=== PATIENT | male | born 1980 | race Hispanic/Latino ===

== ENCOUNTER 2017-11-19 14:16 | Inpatient (IN) | payer OTHER ==
--- NOTE | 2017-11-19 14:52 | ED PDOC ---
HPI: Headache Chief Complaint (Provider): Headache History Per: Patient History/Exam Limitations: no limitations Onset/Duration Of Symptoms: Days (three) Current Symptoms Are (Timing): Still Present Severity: Moderate Preceeding Symptoms: Other (hx of viral encephalitis) <Troy Escoto - Last Filed: 11/19/17 21:19> <Jessica Barnes - Last Filed: 11/19/17 21:30> Time Seen by Provider: 11/19/17 14:51 Chief Complaint (Nursing): Headache Supervising Attending Note - Supervising Attending Note The Documented history was done by the: Physician Advertising Sales Consultant The documented physical exam was done by the: Physician Advertising Sales Consultant The documented procedures were done by the: Physician Advertising Sales Consultant - Attestation: I have personally seen and examined this patient.: Yes I have fully participated in the care of the patient.: Yes I have reviewed all pertinent clinical information: Yes <Jessica Barnes - Last Filed: 11/19/17 21:30> Past Medical History Reviewed: Historical Data, Nursing Documentation, Vital Signs Vital Signs: Last Vital Signs Temp 97.0 F L 11/19/17 14:18 Pulse 71 11/19/17 14:18 Resp 16 11/19/17 14:18 BP 121/81 11/19/17 14:18 Pulse Ox 99 11/19/17 14:18 - Medical History Other PMH: viral encephalitis - Family History Family History: States: Unknown Family Hx <Troy Escoto - Last Filed: 11/19/17 21:19> Vital Signs: Last Vital Signs Temp 97.0 F L 11/19/17 14:18 Pulse 71 11/19/17 14:18 Resp 16 11/19/17 14:18 BP 121/81 11/19/17 14:18 Pulse Ox 99 11/19/17 15:02 <Jessica Barnes - Last Filed: 11/19/17 21:30> - Home Medications Home Medications: Ambulatory Orders Medication Instructions Recorded No Known Home Med 11/19/17 - Allergies Allergies/Adverse Reactions: Allergies Allergy/AdvReac Type Severity Reaction Status Date / Time No Known Allergies Allergy Verified 11/19/17 14:18 Review of Systems ROS Statement: Except As Marked, All Systems Reviewed And Found Negative Constitutional: Positive for: Fever, Sweats Eyes: Positive for: Pain Musculoskeletal: Positive for: Back Pain Neurological: Positive for: Headache <Troy Escoto - Last Filed: 11/19/17 21:19> Physical Exam - Reviewed Nursing Documentation Reviewed: Yes Vital Signs Reviewed: Yes - Physical Exam Appears: Positive for: Well, No Acute Distress Head Exam: Positive for: ATRAUMATIC, NORMAL INSPECTION, NORMOCEPHALIC Skin: Positive for: Normal Color, Warm, Dry Eye Exam: Positive for: Normal appearance, EOMI, PERRL Neck: Positive for: Normal, Painless ROM, Decreased ROM, Pain On Movement Of Neck (keuring sign (-) though neck is stiff and tender to palpation) Cardiovascular/Chest: Positive for: Regular Rate, Rhythm. Negative for: Edema, Murmur, Bradycardia, Tachycardia, Ectopy, Friction Rub Respiratory: Positive for: Normal Breath Sounds. Negative for: Crackles, Rales , Rhonchi, Stridor, Wheezing, Respiratory Distress, Plerual Rub Pulses-Carotid (L): 2+ Pulses-Carotid (R): 2+ Pulses-Radial (L): 2+ Pulses-Radial (R): 2+ Gastrointestinal/Abdominal: Positive for: Normal Exam, Soft. Negative for: Tenderness Lymphatic: Positive for: Normal Exam. Negative for: Adenopathy <Troy Escoto - Last Filed: 11/19/17 21:19> - Laboratory Results Result Diagrams: 11/19/17 15:00 11/19/17 15:00 - ECG O2 Sat by Pulse Oximetry: 99 <Troy Escoto - Last Filed: 11/19/17 21:19> - Laboratory Results Result Diagrams: 11/19/17 15:00 11/19/17 15:00 - Progress Condition: Unchanged - Critical Care Total Time (In Min): 30 <Jessica Barnes - Last Filed: 11/19/17 21:30> Medical Decision Making Medical Decision Making: hx of viral encephalapathy and sent by for "nucal tenderness" with headache (-) = clinically insignificant results CBC (-) CMP (-) Blood Culture ESR (+) CT (-) LP Pt received Benadryl 50mg IVP x2 Discussed case with Dr Louie Neurology who recommened admit without providing any guidance regarding abx or treatment\\Disc Discussed case with of infectious disease who indicated acyclovir, ceftriaxone and vanco- admit Duscussed case with Dir Alvarez hospitalist re admitission <Troy Escoto - Last Filed: 11/19/17 21:19> Procedures - Time-Out Type of Procedure: Lumbar Puncture Site of Procedure: Spine Correct Patient: Yes Correct Procedure: Yes Correct Site Marked: Yes X-Ray Marked: Yes Physician Name: Molly PA/Tech: Jevon - Additional Procedures Additional Procedures: lumbar puncture (Lumbar Puncture performed: one percent lidocaine without epinephrine 5ml used to anesticize the skin after marking the top of the iliac crest and centerline. The cathether was inserted just short of the hub and CS fluid was visualized; four tubes collected; the patient tolerated the procedure well and was resting comfortalby) <Troy Escoto - Last Filed: 11/19/17 21:19> Disposition <Troy Escoto - Last Filed: 11/19/17 21:19> <Jessica Barnes - Last Filed: 11/19/17 21:30> - Disposition Forms: [facility] (Tajik)
[2017-11-19] MEDS ORDERED: DiphenhydrAMINE 50 mg/ml Inj IVP STA ×2 (15:03→20:32)
[2017-11-19 15:11] LABS: BASO % 0.2 % (0.0-2.0); EOS % 0.2 % (0.0-4.0); HEMOGLOBIN 14.3 g/dL (12.0-18.0); LYMPH % 9.4 % (20.0-40.0); MEAN CELL VOLUME 91.1 fl (80.0-94.0); MEAN CORPUSCULAR HEMOGLOBIN 31.7 pg (27.0-31.0); MEAN CORPUSCULAR HGB CONC 34.8 g/dL (33.0-37.0); MONO # 0.9 K/uL (0.0-0.8); MONO % 8.9 % (0.0-10.0); NEUT # 8.6 K/uL (1.8-7.0); NEUT % 81.3 % (50.0-75.0); PLATELET COUNT 224 K/uL (130-400); RBC 4.51 Mil/uL (4.40-5.90); RED CELL DISTRIBUTION WIDTH 12.8 % (11.5-14.5); WHITE BLOOD COUNT 10.5 K/uL (4.8-10.8)
[2017-11-19] MEDS ORDERED: DiphenhydrAMINE 50 mg/ml Inj ONE ×2 (15:14→20:35)
[2017-11-19 15:18] LABS: ALB/GLOB RATIO 1.1 (1.0-2.1); ALBUMIN 4.1 g/dL (3.5-5.0); ALT/SGPT 70 U/L (21-72); AST/SGOT 42 U/L (17-59); BLOOD UREA NITROGEN 10 mg/dl (9-20); CALCIUM 9.3 mg/dL (8.4-10.2); GFR AFRICAN-AMERICAN > 60; GFR NON-AFRICAN AMERICAN > 60
[2017-11-19] MEDS: Sodium Chloride 0.9% 1,000 ML IV SCH ×11 (15:20→23:45)
[2017-11-19 15:23] LABS: URINE BACTERIA RARE (<OCC); URINE BILIRUBIN NEGATIVE (NEGATIVE); URINE BLOOD NEGATIVE (NEGATIVE); URINE CLARITY SLIGHTY-CLOUDY (Clear); URINE COLOR YELLOW (YELLOW); URINE GLUCOSE (UA) NEG (Normal); URINE LEUKOCYTE ESTERASE NEG Leu/uL (Negative); URINE PROTEIN 30 mg/dL (NEGATIVE); URINE UROBILINOGEN 0.2-1.0 mg/dL (0.2-1.0)
[2017-11-19 15:46] LABS: ANISOCYTOSIS SLIGHT; LYMPHOCYTE 9 % (20-50); MONOCYTE 6 % (0-10); NEUTROPHIL 85 % (42-75); PLATELET ESTIMATE NORMAL (NORMAL); TEARDROP CELLS SLIGHT; TOTAL CELLS COUNTED 100
[2017-11-19 15:47] LABS: LARGE PLATELETS PRESENT
--- NOTE | 2017-11-19 16:24 | CT ---
PROCEDURE: CT HEAD WITHOUT CONTRAST. HISTORY: hx encephal. r/o COMPARISON: None available. TECHNIQUE: Axial computed tomography images were obtained through the head/brain without intravenous contrast. Radiation dose: Total exam DLP = 893.79 mGy-cm. This CT exam was performed using one or more of the following dose reduction techniques: Automated exposure control, adjustment of the mA and/or kV according to patient size, and/or use of iterative reconstruction technique. FINDINGS: HEMORRHAGE: No intracranial hemorrhage. BRAIN: No mass effect or edema. No atrophy or chronic microvascular ischemic changes. VENTRICLES: Unremarkable. No hydrocephalus. CALVARIUM: Unremarkable. PARANASAL SINUSES: Unremarkable as visualized. No significant inflammatory changes. MASTOID AIR CELLS: Unremarkable as visualized. No inflammatory changes. OTHER FINDINGS: None. IMPRESSION: Normal CT of the Head. No intracranial mass, hemorrhage or evidence of acute infarct.
[2017-11-19] MEDS ORDERED: Lidocaine 1% Inj (20ml) ONE (18:21)
[2017-11-19 18:59] LABS: FLUID TYPE SPINAL FLUID
[2017-11-19 20:25] LABS: CSF VOLUME 1 mL (0-1)
[2017-11-19 20:26] LABS: CSF APPEARANCE CLEAR/COLORLESS (CLEAR)
[2017-11-19 20:35] LABS: CSF MONO/MACROPHAGE 3 % (0-0)
--- NOTE | 2017-11-19 21:28 | CP.PCM.HP ---
History of Present Illness - History of Present Illness History of Present Illness: PMN: None Chief complaint: Protracted Headache The Patient was seen and examined in the ED HPI: 37 years old male with hx f Encephalitis 30years ago, was referred to the ED from the urgent care with 4 days of generalized headache, which is continuous , becoming worse at nights and associated with pain to the back of neck and shoulders. He refers subjected fevers and chills. No nausea, vomits, Photophobia , dysuria, diarrhea, nor recent viral infection. In The ED a Spinal tap was done , the results noted below. PMH: Viral Encephalitis at age of 57 years old PSH: Denies SH: Never Smoked; No illegal drug use; Alcohol socially; FH: States: Unknown Family Hx Allergies: NKDA Medication: Aleve Present on Admission - Present on Admission Any Indicators Present on Admission: No History of DVT/PE: No History of Uncontrolled Diabetes: No Urinary Catheter: No Decubitus Ulcer Present: No Review of Systems - Constitutional Constitutional: Chills, Fever, Headache. absent: Anorexia - EENT Eyes: Requires Corrective Lenses. absent: Floaters, Itchy Eyes, Sees Flashes Ears: absent: Decreased Hearing, Ear Discharge, Tinnitus Nose/Mouth/Throat: absent: Epistaxis, Nasal Congestion, Sinus Pain, Sinus Pressure - Cardiovascular Cardiovascular: Palpitations. absent: Chest Pain, Dyspnea, Edema - Respiratory Respiratory: absent: Cough, Dyspnea, Wheezing, Stridor, Chest Congestion - Gastrointestinal Gastrointestinal: absent: Abdominal Pain, Constipation, Diarrhea, Nausea, Vomiting - Genitourinary Genitourinary: absent: Dysuria, Flank Pain, Urinary Frequency - Musculoskeletal Musculoskeletal: Neck Pain. absent: Arthralgias, Back Pain, Muscle Weakness - Integumentary Integumentary: absent: Pruritus, Rash, Skin Ulcer, Sores, Striae, Swelling - Neurological Neurological: Headaches. absent: Confusion, Dizziness, Numbness, Focal Weakness , Weakness - Psychiatric Psychiatric: absent: Anxiety, Depression, Panic Attacks - Endocrine Endocrine: absent: Palpitations, Polydipsia, Polyphagia, Polyuria - Hematologic/Lymphatic Hematologic: absent: Easy Bleeding, Easy Bruising Past Patient History - Past Medical History & Family History Past Medical History?: Yes - Past Social History Smoking Status: Never Smoked Chewing Tobacco Use: No Cigar Use: No Alcohol: Occasional - CARDIAC Hx Cardiac Disorders: No - PULMONARY Hx Respiratory Disorders: No - NEUROLOGICAL Hx Neurological Disorder: Yes Other/Comment: viral encephalapothy aty age 57 years old - HEENT Hx HEENT Problems: No - RENAL Hx Chronic Kidney Disease: No - ENDOCRINE/METABOLIC Hx Endocrine Disorders: No - HEMATOLOGICAL/ONCOLOGICAL Hx Blood Disorders: No - INTEGUMENTARY Hx Dermatological Problems: No - MUSCULOSKELETAL/RHEUMATOLOGICAL Hx Musculoskeletal Disorders: No - GASTROINTESTINAL Hx Gastrointestinal Disorders: No - GENITOURINARY/GYNECOLOGICAL Hx Genitourinary Disorders: No - PSYCHIATRIC Hx Psychophysiologic Disorder: No Hx Substance Use: No - SURGICAL HISTORY Hx Surgeries: No - ANESTHESIA Hx Anesthesia: No Meds Allergies/Adverse Reactions: Allergies Allergy/AdvReac Type Severity Reaction Status Date / Time No Known Allergies Allergy Verified 11/19/17 14:18 Physical Exam - Constitutional Appears: No Acute Distress - Head Exam Head Exam: ATRAUMATIC, NORMAL INSPECTION, NORMOCEPHALIC - Eye Exam Eye Exam: EOMI, Normal appearance Pupil Exam: NORMAL ACCOMODATION, PERRL - ENT Exam ENT Exam: Mucous Membranes Moist - Neck Exam Neck exam: Positive for: Full Rom, Normal Inspection. Negative for: Lymphadenopathy, Meningismus, Tenderness, Thyromegaly - Respiratory Exam Respiratory Exam: Clear to Auscultation Bilateral. absent: Rales, Rhonchi, Wheezes - Cardiovascular Exam Cardiovascular Exam: REGULAR RHYTHM, RRR, +S1, +S2. absent: Gallop, JVD - GI/Abdominal Exam GI & Abdominal Exam: Normal Bowel Sounds, Soft. absent: Mass, Organomegaly, Tenderness - Rectal Exam Rectal Exam: Deferred - Extremities Exam Extremities exam: Positive for: full ROM, normal inspection. Negative for: calf tenderness, pedal edema - Back Exam Back exam: NORMAL INSPECTION. absent: CVA tenderness (L), CVA tenderness (R) - Neurological Exam Neurological exam: Alert, CN II-XII Intact, Oriented x3, Reflexes Normal Additional comments: Kernig's Sign negative Brudzinski's sign also negative - Psychiatric Exam Psychiatric exam: Normal Affect, Normal Mood - Skin Skin Exam: Dry, Intact, Normal Color, Warm Results - Vital Signs Recent Vital Signs: Last Vital Signs Temp 98.1 F 11/19/17 18:49 Pulse 72 11/19/17 18:49 Resp 16 11/19/17 18:49 BP 117/68 11/19/17 18:49 Pulse Ox 99 11/19/17 21:20 - Labs Result Diagrams: 11/20/17 04:30 11/20/17 04:30 Labs: Laboratory Results - last 24 hr 11/19/17 11/19/17 11/19/17 15:00 15:00 15:00 WBC 10.5 RBC 4.51 Hgb 14.3 Hct 41.1 MCV 91.1 MCH 31.7 H MCHC 34.8 RDW 12.8 Plt Count 224 MPV 8.0 Neut % (Auto) 81.3 H Lymph % (Auto) 9.4 L [place] % (Auto) 8.9 Eos % (Auto) 0.2 Baso % (Auto) 0.2 Neut # (Auto) 8.6 H Lymph # (Auto) 1.0 [place] # (Auto) 0.9 H Eos # (Auto) 0.0 Baso # (Auto) 0.0 Neutrophils % (Manual) 85 H Lymphocytes % (Manual) 9 L Monocytes % (Manual) 6 Platelet Estimate Normal Large Platelets Present Anisocytosis (manual) Slight Tear Drop Cells Slight ESR 30 H Sodium 141 Potassium 3.8 Chloride 100 Carbon Dioxide 23 Anion Gap 22 H BUN 10 Creatinine 0.8 Est GFR ( Amer) > 60 Est GFR (Non-Af Amer) > 60 Random Glucose 119 H Calcium 9.3 Total Bilirubin 0.4 AST 42 ALT 70 Alkaline Phosphatase 72 Total Protein 7.6 Albumin 4.1 Globulin 3.5 Albumin/Globulin Ratio 1.1 Urine Color Yellow Urine Clarity Slighty-cloudy Urine pH 6.0 Ur Specific [place] 1.026 Urine Protein 30 Urine Glucose (UA) Neg Urine Ketones Trace Urine Blood Negative Urine Nitrate Negative Urine Bilirubin Negative Urine Urobilinogen 0.2-1.0 Ur Leukocyte Esterase Neg Urine RBC (Auto) 3 Urine Microscopic WBC 2 Urine Bacteria Rare Fluid Type CSF Volume CSF Appearance CSF WBC CSF RBC CSF Total Cell Counted CSF Neutrophils CSF Lymphocytes CSF Monos/Macrophages CSF Comment CSF Glucose CSF Total Protein 11/19/17 11/19/17 11/19/17 18:57 18:57 18:57 WBC RBC Hgb Hct MCV MCH MCHC RDW Plt Count MPV Neut % (Auto) Lymph % (Auto) [place] % (Auto) Eos % (Auto) Baso % (Auto) Neut # (Auto) Lymph # (Auto) [place] # (Auto) Eos # (Auto) Baso # (Auto) Neutrophils % (Manual) Lymphocytes % (Manual) Monocytes % (Manual) Platelet Estimate Large Platelets Anisocytosis (manual) Tear Drop Cells ESR Sodium Potassium Chloride Carbon Dioxide Anion Gap BUN Creatinine Est GFR ( Amer) Est GFR (Non-Af Amer) Random Glucose Calcium Total Bilirubin AST ALT Alkaline Phosphatase Total Protein Albumin Globulin Albumin/Globulin Ratio Urine Color Urine Clarity Urine pH Ur Specific Rescue Urine Protein Urine Glucose (UA) Urine Ketones Urine Blood Urine Nitrate Urine Bilirubin Urine Urobilinogen Ur Leukocyte Esterase Urine RBC (Auto) Urine Microscopic WBC Urine Bacteria Fluid Type Spinal fluid CSF Volume 1 CSF Appearance Clear/colorless CSF WBC 10.0 H CSF RBC 12.0 H CSF Total Cell Counted 100 H CSF Neutrophils 65 H CSF Lymphocytes 32.0 H CSF Monos/Macrophages 3 H CSF Comment Colorless CSF Glucose 61 CSF Total Protein 34.0 - Imaging and Cardiology CT scan - head Status: Image reviewed by me, Report reviewed by me Additional comment: Normal CT of head Assessment & Plan - Assessment and Plan (Free Text) Assessment: #. Intractible Headache Plan: 37 years old male with hx of Encephalitis 30years ago, was referred to the ED from the urgent care with 4 days of generalized headache, associated with pain to the back of neck and shoulders. He refers subjected fevers and chills. No nausea, vomits, Photophobia, dysuria, diarrhea, nor recent viral infection. #. Viral Meningitis - Consult ID Dr Ojeda - Consult Dr Louie neurologist - Spinal Tap done in ED - CT head: Normal Ct head - Follow Blood Culture - Acyclovir - Rocephin - Vancomycin - #. Intractable Headache - Pain management #. DVT Prophylaxis with Lovenox #. Code Status: full - Date & Time Date: 11/19/17 Time: 21:28
[2017-11-19] MEDS ORDERED: Vancomycin 1 g Inj ONE (21:39)
[2017-11-20 05:58] LABS: BLOOD UREA NITROGEN 8 mg/dl (9-20); CALCIUM 8.5 mg/dL (8.4-10.2); GFR AFRICAN-AMERICAN > 60; GFR NON-AFRICAN AMERICAN > 60
[2017-11-20 05:59] LABS: BASO % 0.2 % (0.0-2.0); HEMOGLOBIN 12.8 g/dL (12.0-18.0); LYMPH # 0.7 K/uL (1.0-4.3); LYMPH % 7.6 % (20.0-40.0); MEAN CELL VOLUME 89.7 fl (80.0-94.0); MEAN CORPUSCULAR HEMOGLOBIN 31.6 pg (27.0-31.0); MEAN CORPUSCULAR HGB CONC 35.3 g/dL (33.0-37.0); MEAN PLATELET VOLUME 7.8 fl (7.2-11.7); MONO # 0.6 K/uL (0.0-0.8); MONO % 6.1 % (0.0-10.0); NEUT # 7.9 K/uL (1.8-7.0); NEUT % 86.1 % (50.0-75.0); RBC 4.04 Mil/uL (4.40-5.90); WHITE BLOOD COUNT 9.1 K/uL (4.8-10.8)
[2017-11-20 06:30] LABS: INR 1.2 (0.9-1.2); PROTHROMBIN TIME 13.7 Seconds (9.8-13.1)
[2017-11-20] MEDS: Sodium Chloride 0.9% 1,000 ML IV SCH ×2 (07:03→15:43)
[2017-11-20] MEDS: cefTRIAXone 2 GM in Sodium Chloride 0.9% 100 ML IVPB SCH (09:12)
[2017-11-20] MEDS: Enoxaparin 40 mg Syringe SC SCH (09:13)
[2017-11-20] MEDS: Magnesium Oxide 400 mg Tab UD PO SCH ×2 (10:58→18:15)
--- NOTE | 2017-11-20 11:35 | CP.PCM.CON ---
History of Present Illness - History of Present Illness History of Present Illness: 37 y old man with pmhx of encephalitis at age 7 presents with 5 days history of headache which were not getting better associated with neck pain as well. No hx of recent travel. Headache a little better today. Past Patient History - Past Medical History & Family History Past Medical History?: Yes - Past Social History Smoking Status: Never Smoked Chewing Tobacco Use: No Cigar Use: No Alcohol: Occasional - CARDIAC Hx Cardiac Disorders: No - PULMONARY Hx Respiratory Disorders: No - NEUROLOGICAL Hx Neurological Disorder: Yes Other/Comment: viral encephalapothy aty age 57 years old - HEENT Hx HEENT Problems: No - RENAL Hx Chronic Kidney Disease: No - ENDOCRINE/METABOLIC Hx Endocrine Disorders: No - HEMATOLOGICAL/ONCOLOGICAL Hx Blood Disorders: No - INTEGUMENTARY Hx Dermatological Problems: No - MUSCULOSKELETAL/RHEUMATOLOGICAL Hx Musculoskeletal Disorders: No - GASTROINTESTINAL Hx Gastrointestinal Disorders: No - GENITOURINARY/GYNECOLOGICAL Hx Genitourinary Disorders: No - PSYCHIATRIC Hx Psychophysiologic Disorder: No Hx Substance Use: No - SURGICAL HISTORY Hx Surgeries: No - ANESTHESIA Hx Anesthesia: No Meds Allergies/Adverse Reactions: Allergies Allergy/AdvReac Type Severity Reaction Status Date / Time No Known Allergies Allergy Verified 11/19/17 14:18 - Medications Medications: Current Medications Acetaminophen (Tylenol 325mg Tab) 650 mg PO Q4 PRN PRN Reason: Fever >100.4 F Enoxaparin Sodium (Lovenox) 40 mg SC DAILY JONES PRN Reason: Protocol Last Admin: 11/20/17 09:13 Dose: 40 mg Sodium Chloride (Sodium Chloride 0.9%) 1,000 mls @ 1,000 mls/hr IV .Q1H JONES Stop: 11/20/17 15:03 Last Admin: 11/19/17 20:32 Dose: Not Given Sodium Chloride (Sodium Chloride 0.9%) 1,000 mls @ 1,000 mls/hr IV .Q1H JONES Stop: 11/20/17 17:26 Last Admin: 11/19/17 20:30 Dose: Not Given Ceftriaxone Sodium 2 gm/ (Sodium Chloride) 100 mls @ 100 mls/hr IVPB DAILY JONES PRN Reason: Protocol Last Admin: 11/20/17 09:12 Dose: 100 mls/hr Acyclovir 680 mg/ Sodium (Chloride) 100 mls @ 100 mls/hr IV Q8 JONES PRN Reason: Protocol Last Admin: 11/20/17 09:12 Dose: 100 mls/hr Sodium Chloride (Sodium Chloride 0.9%) 1,000 mls @ 125 mls/hr IV .Q8H [facility] Stop: 11/20/17 22:12 Last Admin: 11/20/17 07:03 Dose: Not Given Vancomycin HCl 1 gm/ Sodium (Chloride) 250 mls @ 166.667 mls/hr IVPB Q12 JONES PRN Reason: Protocol Last Admin: 11/20/17 09:11 Dose: 166.667 mls/hr Ketorolac Tromethamine (Toradol) 30 mg IVP Q6 PRN PRN Reason: For Severe Headache Last Admin: 11/20/17 04:32 Dose: 30 mg Ketorolac Tromethamine (Toradol) 15 mg IVP Q6 PRN PRN Reason: For mild headache Magnesium Oxide (Mag-Ox) 400 mg PO BID [facility] Metoclopramide HCl (Reglan) 10 mg IVP Q6 PRN PRN Reason: Nausea/Vomiting Last Admin: 11/19/17 23:44 Dose: 10 mg Physical Exam - Constitutional Additional comments: awake and alert and oriented. neck sign positive Results - Vital Signs Recent Vital Signs: Last Vital Signs Temp 98.3 F 11/20/17 07:57 Pulse 100 H 11/20/17 07:57 Resp 18 11/20/17 07:57 BP 118/70 11/20/17 07:57 Pulse Ox 100 11/20/17 07:57 - Labs Result Diagrams: 11/20/17 04:30 11/20/17 04:30 Labs: Laboratory Results - last 24 hr 11/19/17 11/19/17 11/19/17 15:00 15:00 15:00 WBC 10.5 RBC 4.51 Hgb 14.3 Hct 41.1 MCV 91.1 MCH 31.7 H MCHC 34.8 RDW 12.8 Plt Count 224 MPV 8.0 Neut % (Auto) 81.3 H Lymph % (Auto) 9.4 L [place] % (Auto) 8.9 Eos % (Auto) 0.2 Baso % (Auto) 0.2 Neut # (Auto) 8.6 H Lymph # (Auto) 1.0 [place] # (Auto) 0.9 H Eos # (Auto) 0.0 Baso # (Auto) 0.0 Neutrophils % (Manual) 85 H Lymphocytes % (Manual) 9 L Monocytes % (Manual) 6 Platelet Estimate Normal Large Platelets Present Anisocytosis (manual) Slight Tear Drop Cells Slight ESR 30 H PT INR APTT Sodium 141 Potassium 3.8 Chloride 100 Carbon Dioxide 23 Anion Gap 22 H BUN 10 Creatinine 0.8 Est GFR ( Amer) > 60 Est GFR (Non-Af Amer) > 60 Random Glucose 119 H Calcium 9.3 Total Bilirubin 0.4 AST 42 ALT 70 Alkaline Phosphatase 72 Total Protein 7.6 Albumin 4.1 Globulin 3.5 Albumin/Globulin Ratio 1.1 Urine Color Yellow Urine Clarity Slighty-cloudy Urine pH 6.0 Ur Specific [place] 1.026 Urine Protein 30 Urine Glucose (UA) Neg Urine Ketones Trace Urine Blood Negative Urine Nitrate Negative Urine Bilirubin Negative Urine Urobilinogen 0.2-1.0 Ur Leukocyte Esterase Neg Urine RBC (Auto) 3 Urine Microscopic WBC 2 Urine Bacteria Rare Fluid Type CSF Volume CSF Appearance CSF WBC CSF RBC CSF Total Cell Counted CSF Neutrophils CSF Lymphocytes CSF Monos/Macrophages CSF Comment CSF Glucose CSF Total Protein HSV Source Description 11/19/17 11/19/17 11/19/17 18:57 18:57 18:57 WBC RBC Hgb Hct MCV MCH MCHC RDW Plt Count MPV Neut % (Auto) Lymph % (Auto) [place] % (Auto) Eos % (Auto) Baso % (Auto) Neut # (Auto) Lymph # (Auto) [place] # (Auto) Eos # (Auto) Baso # (Auto) Neutrophils % (Manual) Lymphocytes % (Manual) Monocytes % (Manual) Platelet Estimate Large Platelets Anisocytosis (manual) Tear Drop Cells ESR PT INR APTT Sodium Potassium Chloride Carbon Dioxide Anion Gap BUN Creatinine Est GFR ( Amer) Est GFR (Non-Af Amer) Random Glucose Calcium Total Bilirubin AST ALT Alkaline Phosphatase Total Protein Albumin Globulin Albumin/Globulin Ratio Urine Color Urine Clarity Urine pH Ur Specific [place] Urine Protein Urine Glucose (UA) Urine Ketones Urine Blood Urine Nitrate Urine Bilirubin Urine Urobilinogen Ur Leukocyte Esterase Urine RBC (Auto) Urine Microscopic WBC Urine Bacteria Fluid Type Spinal fluid CSF Volume 1 CSF Appearance Clear/colorless CSF WBC 10.0 H CSF RBC 12.0 H CSF Total Cell Counted 100 H CSF Neutrophils 65 H CSF Lymphocytes 32.0 H CSF Monos/Macrophages 3 H CSF Comment Colorless CSF Glucose 61 CSF Total Protein HSV Source Description Fluid 11/19/17 11/20/17 11/20/17 18:57 04:30 04:30 WBC 9.1 RBC 4.04 L Hgb 12.8 Hct 36.2 MCV 89.7 MCH 31.6 H MCHC 35.3 RDW 13.0 Plt Count 250 MPV 7.8 Neut % (Auto) 86.1 H Lymph % (Auto) 7.6 L [place] % (Auto) 6.1 Eos % (Auto) 0.0 Baso % (Auto) 0.2 Neut # (Auto) 7.9 H Lymph # (Auto) 0.7 L [place] # (Auto) 0.6 Eos # (Auto) 0.0 Baso # (Auto) 0.0 Neutrophils % (Manual) Lymphocytes % (Manual) Monocytes % (Manual) Platelet Estimate Large Platelets Anisocytosis (manual) Tear Drop Cells ESR PT INR APTT Sodium 138 Potassium 3.7 Chloride 103 Carbon Dioxide 24 Anion Gap 15 BUN 8 L Creatinine 0.7 L Est GFR ( Amer) > 60 Est GFR (Non-Af Amer) > 60 Random Glucose 145 H Calcium 8.5 Total Bilirubin AST ALT Alkaline Phosphatase Total Protein Albumin Globulin Albumin/Globulin Ratio Urine Color Urine Clarity Urine pH Ur Specific [place] Urine Protein Urine Glucose (UA) Urine Ketones Urine Blood Urine Nitrate Urine Bilirubin Urine Urobilinogen Ur Leukocyte Esterase Urine RBC (Auto) Urine Microscopic WBC Urine Bacteria Fluid Type CSF Volume CSF Appearance CSF WBC CSF RBC CSF Total Cell Counted CSF Neutrophils CSF Lymphocytes CSF Monos/Macrophages CSF Comment CSF Glucose CSF Total Protein 34.0 HSV Source Description 11/20/17 04:30 WBC RBC Hgb Hct MCV MCH MCHC RDW Plt Count MPV Neut % (Auto) Lymph % (Auto) [place] % (Auto) Eos % (Auto) Baso % (Auto) Neut # (Auto) Lymph # (Auto) [place] # (Auto) Eos # (Auto) Baso # (Auto) Neutrophils % (Manual) Lymphocytes % (Manual) Monocytes % (Manual) Platelet Estimate Large Platelets Anisocytosis (manual) Tear Drop Cells ESR PT 13.7 H INR 1.2 APTT 28.0 Sodium Potassium Chloride Carbon Dioxide Anion Gap BUN Creatinine Est GFR ( Amer) Est GFR (Non-Af Amer) Random Glucose Calcium Total Bilirubin AST ALT Alkaline Phosphatase Total Protein Albumin Globulin Albumin/Globulin Ratio Urine Color Urine Clarity Urine pH Ur Specific [place] Urine Protein Urine Glucose (UA) Urine Ketones Urine Blood Urine Nitrate Urine Bilirubin Urine Urobilinogen Ur Leukocyte Esterase Urine RBC (Auto) Urine Microscopic WBC Urine Bacteria Fluid Type CSF Volume CSF Appearance CSF WBC CSF RBC CSF Total Cell Counted CSF Neutrophils CSF Lymphocytes CSF Monos/Macrophages CSF Comment CSF Glucose CSF Total Protein HSV Source Description Assessment & Plan - Assessment and Plan (Free Text) Assessment: 37 yr old with headache and neck signs with spinal revealing rbcs and wbcs 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
--- NOTE | 2017-11-20 13:10 | CP.PCM.PN ---
Subjective - Date & Time of Evaluation Date of Evaluation: 11/20/17 Time of Evaluation: 13:00 - Subjective Subjective: Patient seen and examined bedside.Complains of LOVE. Hemodynamically stable, Tmax 100.5 Feeling a little nauseated today Objective - Vital Signs/Intake and Output Vital Signs (last 24 hours): Temp Pulse Resp BP Pulse Ox 98.3 F 81 18 113/66 96 11/20/17 12:31 11/20/17 12:31 11/20/17 12:31 11/20/17 12:31 11/20/17 12:31 - Medications Medications: Current Medications Acetaminophen (Tylenol 325mg Tab) 650 mg PO Q4 PRN PRN Reason: Fever >100.4 F Enoxaparin Sodium (Lovenox) 40 mg SC DAILY JONES PRN Reason: Protocol Last Admin: 11/20/17 09:13 Dose: 40 mg Sodium Chloride (Sodium Chloride 0.9%) 1,000 mls @ 1,000 mls/hr IV .Q1H JONES Stop: 11/20/17 15:03 Last Admin: 11/19/17 20:32 Dose: Not Given Sodium Chloride (Sodium Chloride 0.9%) 1,000 mls @ 1,000 mls/hr IV .Q1H JONES Stop: 11/20/17 17:26 Last Admin: 11/19/17 20:30 Dose: Not Given Ceftriaxone Sodium 2 gm/ (Sodium Chloride) 100 mls @ 100 mls/hr IVPB DAILY JONES PRN Reason: Protocol Last Admin: 11/20/17 09:12 Dose: 100 mls/hr Acyclovir 680 mg/ Sodium (Chloride) 100 mls @ 100 mls/hr IV Q8 JONES PRN Reason: Protocol Last Admin: 11/20/17 09:12 Dose: 100 mls/hr Sodium Chloride (Sodium Chloride 0.9%) 1,000 mls @ 125 mls/hr IV .Q8H JONES Stop: 11/20/17 22:12 Last Admin: 11/20/17 07:03 Dose: Not Given Vancomycin HCl 1 gm/ Sodium (Chloride) 250 mls @ 166.667 mls/hr IVPB Q12 JONES PRN Reason: Protocol Last Admin: 11/20/17 09:11 Dose: 166.667 mls/hr Ketorolac Tromethamine (Toradol) 30 mg IVP Q6 PRN PRN Reason: For Severe Headache Last Admin: 11/20/17 04:32 Dose: 30 mg Ketorolac Tromethamine (Toradol) 15 mg IVP Q6 PRN PRN Reason: For mild headache Last Admin: 11/20/17 11:00 Dose: 15 mg Magnesium Oxide (Mag-Ox) 400 mg PO BID JONES Last Admin: 11/20/17 10:58 Dose: 400 mg Metoclopramide HCl (Reglan) 10 mg IVP Q6 PRN PRN Reason: Nausea/Vomiting Last Admin: 11/20/17 12:59 Dose: 10 mg - Labs Labs: 11/20/17 04:30 11/20/17 04:30 PT 13.7 Seconds (9.8-13.1) H 11/20/17 04:30 INR 1.2 (0.9-1.2) 11/20/17 04:30 APTT 28.0 Seconds (25.6-37.1) 11/20/17 04:30 - Constitutional Appears: Non-toxic - Head Exam Head Exam: ATRAUMATIC, NORMOCEPHALIC - Eye Exam Eye Exam: EOMI, PERRL Pupil Exam: NORMAL ACCOMODATION - ENT Exam ENT Exam: Mucous Membranes Moist, Normal Exam - Neck Exam Neck Exam: Full ROM, Normal Inspection - Respiratory Exam Respiratory Exam: Clear to Ausculation Bilateral, NORMAL BREATHING PATTERN. absent: Rales, Wheezes - Cardiovascular Exam Cardiovascular Exam: REGULAR RHYTHM, RRR, +S1, +S2. absent: JVD - GI/Abdominal Exam GI & Abdominal Exam: Soft, Normal Bowel Sounds. absent: Distended, Guarding, Tenderness, Rebound - Rectal Exam Rectal Exam: Deferred - Extremities Exam Extremities Exam: Full ROM, Normal Capillary Refill, Normal Inspection. absent : Calf Tenderness, Pedal Edema - Back Exam Back Exam: NORMAL INSPECTION - Neurological Exam Neurological Exam: Alert, Awake, CN II-XII Intact, Oriented x3 - Psychiatric Exam Psychiatric exam: Normal Affect - Skin Skin Exam: Dry, Normal Color, Warm Assessment and Plan - Assessment and Plan (Free Text) Assessment: 37 years old male with hx of Encephalitis 30 years ago, was referred to the ED from the urgent care with 4 days of generalized headache, associated with pain to the back of neck and shoulders. He refers subjected fevers and chills. No nausea, vomits, Photophobia, dysuria, diarrhea, nor recent viral infection. LP showed RBC-s and WBC with 65 neutrophils and 32 lymphocytes Patient admitted for viral vs aseptic meningitis and started on vanco , Rocephin and acyclovir IV. ID was consulted 1.Viral vs aseptic MeningitiSD droplet precautions Continue Vanco , rocephin and Acyclovir IV ID consult appreciated and case discussed with Dr. Ojeda CT head showed no acute pathology follow up spinal fluid cx results and serology pain management and Reglan PRN for nausea start Decadron for LOVE 2.DVT Prophylaxis Lovenox
[2017-11-20] MEDS ORDERED: Oxycodone/Acetaminophen 5/325 mg Tab PO PRN (14:13)
[2017-11-20 14:28] LABS: BARBITURATES, UR NEGATIVE (NEGATIVE); BENZODIAZEPINES, UR NEGATIVE (NEGATIVE); OPIATES, UR POSITIVE (NEGATIVE); PHENCYCLIDINE, UR NEGATIVE (NEGATIVE)
--- NOTE | 2017-11-20 19:03 | CP.PCM.CON ---
History of Present Illness - History of Present Illness History of Present Illness: 37 yr old male who started to have a headache last week, frontal in nature, pounding, sharp and associated with occasional blurriness of vision. He developed a low grade fever later in the week and finally sought medical help when he came to the ER yesterday. works in the [employer] and has a very demanding job and was under a lot of stress in the last couple of months. Today, he is admitted to isolation with presumptive diagnosis of meningitis, viral and is stable. He denies any prior spells, any sick contacts, recent travel or tick exposure. LP was done yesterday so patient is resting comfortably and is not sitting up. PMH/PSH: none FH/SH: Works for [employer], no tobacco, only rare etoh. All: nkda on exam: PERRL, EOMI, mild nuchal rigidity, no kernigs or brudskinskis sign, good strength bilaterally, sensory exam normal. Patient was told a joke and he smiled appropriately. +2 dtr ul and ll bl. Toes downgoing. no clonus. Past Patient History - Past Medical History & Family History Past Medical History?: Yes - Past Social History Smoking Status: Never Smoked Chewing Tobacco Use: No Cigar Use: No Alcohol: Occasional - CARDIAC Hx Cardiac Disorders: No - PULMONARY Hx Respiratory Disorders: No - NEUROLOGICAL Hx Neurological Disorder: Yes Other/Comment: viral encephalapothy aty age 57 years old - HEENT Hx HEENT Problems: No - RENAL Hx Chronic Kidney Disease: No - ENDOCRINE/METABOLIC Hx Endocrine Disorders: No - HEMATOLOGICAL/ONCOLOGICAL Hx Blood Disorders: No - INTEGUMENTARY Hx Dermatological Problems: No - MUSCULOSKELETAL/RHEUMATOLOGICAL Hx Musculoskeletal Disorders: No - GASTROINTESTINAL Hx Gastrointestinal Disorders: No - GENITOURINARY/GYNECOLOGICAL Hx Genitourinary Disorders: No - PSYCHIATRIC Hx Psychophysiologic Disorder: No Hx Substance Use: No - SURGICAL HISTORY Hx Surgeries: No - ANESTHESIA Hx Anesthesia: No Meds Allergies/Adverse Reactions: Allergies Allergy/AdvReac Type Severity Reaction Status Date / Time No Known Allergies Allergy Verified 11/19/17 14:18 - Medications Medications: Current Medications Acetaminophen (Tylenol 325mg Tab) 650 mg PO Q4 PRN PRN Reason: Fever >100.4 F Dexamethasone (Decadron Inj) 10 mg IVP DAILY JONES Enoxaparin Sodium (Lovenox) 40 mg SC DAILY [facility] PRN Reason: Protocol Last Admin: 11/20/17 09:13 Dose: 40 mg Ceftriaxone Sodium 2 gm/ (Sodium Chloride) 100 mls @ 100 mls/hr IVPB DAILY [facility] PRN Reason: Protocol Last Admin: 11/20/17 09:12 Dose: 100 mls/hr Acyclovir 680 mg/ Sodium (Chloride) 100 mls @ 100 mls/hr IV Q8 [facility] PRN Reason: Protocol Last Admin: 11/20/17 18:14 Dose: 100 mls/hr Sodium Chloride (Sodium Chloride 0.9%) 1,000 mls @ 125 mls/hr IV .Q8H [facility] Stop: 11/20/17 22:12 Last Admin: 11/20/17 15:43 Dose: 125 mls/hr Vancomycin HCl 1 gm/ Sodium (Chloride) 250 mls @ 166.667 mls/hr IVPB Q12 [facility] PRN Reason: Protocol Last Admin: 11/20/17 09:11 Dose: 166.667 mls/hr Ketorolac Tromethamine (Toradol) 30 mg IVP Q6 PRN PRN Reason: For Severe Headache Last Admin: 11/20/17 15:42 Dose: 30 mg Ketorolac Tromethamine (Toradol) 15 mg IVP Q6 PRN PRN Reason: For mild headache Last Admin: 11/20/17 11:00 Dose: 15 mg Magnesium Oxide (Mag-Ox) 400 mg PO BID [facility] Last Admin: 11/20/17 18:15 Dose: 400 mg Oxycodone/Acetaminophen (Percocet 5/325 Mg Tab) 1 tab PO Q6 PRN PRN Reason: Pain, severe (8-10) Stop: 11/23/17 14:14 Last Admin: 11/20/17 14:26 Dose: 1 tab Results - Vital Signs Recent Vital Signs: Last Vital Signs Temp 98.2 F 11/20/17 15:23 Pulse 83 11/20/17 15:23 Resp 20 11/20/17 15:23 BP 122/79 11/20/17 15:23 Pulse Ox 97 11/20/17 15:23 - Labs Result Diagrams: 11/20/17 04:30 11/20/17 04:30 Labs: Laboratory Results - last 24 hr 11/19/17 11/19/1718 18:57 18:57 18:57 WBC RBC Hgb Hct MCV MCH MCHC RDW Plt Count MPV Neut % (Auto) Lymph % (Auto) [place] % (Auto) Eos % (Auto) Baso % (Auto) Neut # (Auto) Lymph # (Auto) [place] # (Auto) Eos # (Auto) Baso # (Auto) PT INR APTT Sodium Potassium Chloride Carbon Dioxide Anion Gap BUN Creatinine Est GFR ( Amer) Est GFR (Non-Af Amer) Random Glucose Calcium Fluid Type Spinal fluid CSF Volume 1 CSF Appearance Clear/colorless CSF WBC 10.0 H CSF RBC 12.0 H CSF Total Cell Counted 100 H CSF Neutrophils 65 H CSF Lymphocytes 32.0 H CSF Monos/Macrophages 3 H CSF Comment Colorless CSF Glucose 61 CSF Total Protein CSF VDRL Urine Opiates Screen Urine Methadone Screen Ur Barbiturates Screen Ur Phencyclidine Scrn Ur Amphetamines Screen U Benzodiazepines Scrn U Oth Cocaine Metabols U Cannabinoids Screen HSV Source Description Fluid HIV 1&2 Antibody Screen 11/19/17 11/19/17 11/20/17 18:57 18:57 04:30 WBC 9.1 RBC 4.04 L Hgb 12.8 Hct 36.2 MCV 89.7 MCH 31.6 H MCHC 35.3 RDW 13.0 Plt Count 250 MPV 7.8 Neut % (Auto) 86.1 H Lymph % (Auto) 7.6 L [place] % (Auto) 6.1 Eos % (Auto) 0.0 Baso % (Auto) 0.2 Neut # (Auto) 7.9 H Lymph # (Auto) 0.7 L [place] # (Auto) 0.6 Eos # (Auto) 0.0 Baso # (Auto) 0.0 PT INR APTT Sodium Potassium Chloride Carbon Dioxide Anion Gap BUN Creatinine Est GFR ( Amer) Est GFR (Non-Af Amer) Random Glucose Calcium Fluid Type CSF Volume CSF Appearance CSF WBC CSF RBC CSF Total Cell Counted CSF Neutrophils CSF Lymphocytes CSF Monos/Macrophages CSF Comment CSF Glucose CSF Total Protein 34.0 CSF VDRL Nonreactive Urine Opiates Screen Urine Methadone Screen Ur Barbiturates Screen Ur Phencyclidine Scrn Ur Amphetamines Screen U Benzodiazepines Scrn U Oth Cocaine Metabols U Cannabinoids Screen HSV Source Description HIV 1&2 Antibody Screen 11/20/17 11/20/17 11/20/17 04:30 04:30 04:30 WBC RBC Hgb Hct MCV MCH MCHC RDW Plt Count MPV Neut % (Auto) Lymph % (Auto) [place] % (Auto) Eos % (Auto) Baso % (Auto) Neut # (Auto) Lymph # (Auto) [place] # (Auto) Eos # (Auto) Baso # (Auto) PT 13.7 H INR 1.2 APTT 28.0 Sodium 138 Potassium 3.7 Chloride 103 Carbon Dioxide 24 Anion Gap 15 BUN 8 L Creatinine 0.7 L Est GFR ( Amer) > 60 Est GFR (Non-Af Amer) > 60 Random Glucose 145 H Calcium 8.5 Fluid Type CSF Volume CSF Appearance CSF WBC CSF RBC CSF Total Cell Counted CSF Neutrophils CSF Lymphocytes CSF Monos/Macrophages CSF Comment CSF Glucose CSF Total Protein CSF VDRL Urine Opiates Screen Urine Methadone Screen Ur Barbiturates Screen Ur Phencyclidine Scrn Ur Amphetamines Screen U Benzodiazepines Scrn U Oth Cocaine Metabols U Cannabinoids Screen HSV Source Description HIV 1&2 Antibody Screen Negative 11/20/17 13:37 WBC RBC Hgb Hct MCV MCH MCHC RDW Plt Count MPV Neut % (Auto) Lymph % (Auto) [place] % (Auto) Eos % (Auto) Baso % (Auto) Neut # (Auto) Lymph # (Auto) [place] # (Auto) Eos # (Auto) Baso # (Auto) PT INR APTT Sodium Potassium Chloride Carbon Dioxide Anion Gap BUN Creatinine Est GFR ( Amer) Est GFR (Non-Af Amer) Random Glucose Calcium Fluid Type CSF Volume CSF Appearance CSF WBC CSF RBC CSF Total Cell Counted CSF Neutrophils CSF Lymphocytes CSF Monos/Macrophages CSF Comment CSF Glucose CSF Total Protein CSF VDRL Urine Opiates Screen Positive H Urine Methadone Screen Negative Ur Barbiturates Screen Negative Ur Phencyclidine Scrn Negative Ur Amphetamines Screen Negative U Benzodiazepines Scrn Negative U Oth Cocaine Metabols Negative U Cannabinoids Screen Negative HSV Source Description HIV 1&2 Antibody Screen - Imaging and Cardiology CT scan - head Status: Image reviewed by me, Report reviewed by me (ct head normal) Assessment & Plan - Assessment and Plan (Free Text) Assessment: 37 yr old with csf profile that appears to be a viral meningitis, although he is not tremendously encephalopathic at this time. plan 1. continue antibiotics. 2. Patient may sit up by tonight, and ambulate as comfortable. 3. COntinue contact isolation. Thank you our team will follow DR. Louie
[2017-11-21] MEDS: Enoxaparin 40 mg Syringe SC SCH (08:46)
[2017-11-21] MEDS: cefTRIAXone 2 GM in Sodium Chloride 0.9% 100 ML IVPB SCH (08:46)
[2017-11-21] MEDS: Magnesium Oxide 400 mg Tab UD PO SCH ×2 (08:47→17:01)
[2017-11-21] MEDS ORDERED: Dexamethasone 10 MG in Sodium Chloride 0.9% 50 ML IVPB SCH (09:00)
--- NOTE | 2017-11-21 09:33 | CP.PCM.PN ---
Subjective - Date & Time of Evaluation Date of Evaluation: 11/21/17 Time of Evaluation: 09:30 - Subjective Subjective: Patient seen and examined . Feeling better .headache has improved . no more nausea or vomiting today . Hemodynamically stable ,afebrile last 12 hours Objective - Vital Signs/Intake and Output Vital Signs (last 24 hours): Temp Pulse Resp BP Pulse Ox 98.4 F 84 18 117/72 96 11/21/17 07:44 11/21/17 07:44 11/21/17 07:44 11/21/17 07:44 11/21/17 07:44 - Medications Medications: Current Medications Acetaminophen (Tylenol 325mg Tab) 650 mg PO Q4 PRN PRN Reason: Fever >100.4 F Dexamethasone (Decadron Inj) 10 mg IVP DAILY [facility] Last Admin: 11/21/17 08:47 Dose: 10 mg Enoxaparin Sodium (Lovenox) 40 mg SC DAILY [facility] PRN Reason: Protocol Last Admin: 11/21/17 08:46 Dose: 40 mg Ceftriaxone Sodium 2 gm/ (Sodium Chloride) 100 mls @ 100 mls/hr IVPB DAILY [facility] PRN Reason: Protocol Last Admin: 11/21/17 08:46 Dose: 100 mls/hr Acyclovir 680 mg/ Sodium (Chloride) 100 mls @ 100 mls/hr IV Q8 JONES PRN Reason: Protocol Last Admin: 11/21/17 08:45 Dose: 100 mls/hr Vancomycin HCl 1 gm/ Sodium (Chloride) 250 mls @ 166.667 mls/hr IVPB Q12 JONES PRN Reason: Protocol Last Admin: 11/21/17 08:45 Dose: 166.667 mls/hr Ketorolac Tromethamine (Toradol) 30 mg IVP Q6 PRN PRN Reason: For Severe Headache Last Admin: 11/20/17 15:42 Dose: 30 mg Ketorolac Tromethamine (Toradol) 15 mg IVP Q6 PRN PRN Reason: For mild headache Last Admin: 11/21/17 06:37 Dose: 15 mg Magnesium Oxide (Mag-Ox) 400 mg PO BID [facility] Last Admin: 11/21/17 08:47 Dose: 400 mg Metoclopramide HCl (Reglan) 10 mg IVP Q6 PRN PRN Reason: Nausea/Vomiting Last Admin: 11/21/17 08:47 Dose: 10 mg Oxycodone/Acetaminophen (Percocet 5/325 Mg Tab) 1 tab PO Q6 PRN PRN Reason: Pain, severe (8-10) Stop: 11/23/17 14:14 Last Admin: 11/20/17 14:26 Dose: 1 tab - Labs Labs: 11/20/17 04:30 11/20/17 04:30 PT 13.7 Seconds (9.8-13.1) H 11/20/17 04:30 INR 1.2 (0.9-1.2) 11/20/17 04:30 APTT 28.0 Seconds (25.6-37.1) 11/20/17 04:30 - Constitutional Appears: Non-toxic, No Acute Distress - Head Exam Head Exam: ATRAUMATIC, NORMAL INSPECTION, NORMOCEPHALIC - Eye Exam Eye Exam: EOMI, Normal appearance, PERRL Pupil Exam: NORMAL ACCOMODATION - ENT Exam ENT Exam: Mucous Membranes Moist, Normal Exam - Neck Exam Neck Exam: Full ROM, Normal Inspection - Respiratory Exam Respiratory Exam: Clear to Ausculation Bilateral, NORMAL BREATHING PATTERN. absent: Rales, Rhonchi, Wheezes - Cardiovascular Exam Cardiovascular Exam: REGULAR RHYTHM, RRR, +S1, +S2. absent: JVD - GI/Abdominal Exam GI & Abdominal Exam: Soft, Normal Bowel Sounds. absent: Distended, Guarding, Rebound - Rectal Exam Rectal Exam: Deferred - Extremities Exam Extremities Exam: Full ROM, Normal Capillary Refill, Normal Inspection. absent : Calf Tenderness, Pedal Edema - Back Exam Back Exam: NORMAL INSPECTION - Neurological Exam Neurological Exam: Alert, Awake, CN II-XII Intact, Oriented x3 - Psychiatric Exam Psychiatric exam: Normal Affect, Normal Mood - Skin Skin Exam: Dry, Intact, Normal Color, Warm Assessment and Plan - Assessment and Plan (Free Text) Assessment: 37 years old male with hx of Encephalitis 30 years ago, was referred to the ED from the urgent care with 4 days of generalized headache, associated with pain to the back of neck and shoulders. He refers subjected fevers and chills. No nausea, vomits, Photophobia, dysuria, diarrhea, nor recent viral infection. LP showed RBC-s and WBC with 65 neutrophils and 32 lymphocytes Patient admitted for viral vs aseptic meningitis and started on vanco , Rocephin and acyclovir IV. ID was consulted At present feeling better, headache is better 1.Viral vs aseptic Meningitis droplet precautions Continue Vanco , rocephin and Acyclovir IV ID consult appreciated and case discussed with Dr. Ojeda CT head showed no acute pathology follow up spinal fluid cx results and serology pain management and Reglan PRN for nausea on Decadron for LOVE , Percoset and toradol PRN 2.DVT Prophylaxis Lovenox
[2017-11-21 11:51] LABS: HEMOGLOBIN 13.7 g/dL (12.0-18.0); MEAN CELL VOLUME 90.9 fl (80.0-94.0); MEAN CORPUSCULAR HEMOGLOBIN 31.4 pg (27.0-31.0); MEAN CORPUSCULAR HGB CONC 34.6 g/dL (33.0-37.0); RBC 4.36 Mil/uL (4.40-5.90); RED CELL DISTRIBUTION WIDTH 12.8 % (11.5-14.5); WHITE BLOOD COUNT 11.1 K/uL (4.8-10.8)
[2017-11-21 12:00] LABS: BLOOD UREA NITROGEN 7 mg/dl (9-20); CALCIUM 8.9 mg/dL (8.4-10.2); GFR AFRICAN-AMERICAN > 60; GFR NON-AFRICAN AMERICAN > 60
[2017-11-21 12:41] LABS: SPECIMEN SOURCE CSF
[2017-11-21] MEDS ORDERED: Dexamethasone 10 MG in Sodium Chloride 0.9% 50 ML IVPB ONE (19:00)
[2017-11-22 06:01] LABS: HEMOGLOBIN 12.9 g/dL (12.0-18.0); MEAN CELL VOLUME 90.5 fl (80.0-94.0); MEAN CORPUSCULAR HEMOGLOBIN 31.4 pg (27.0-31.0); MEAN CORPUSCULAR HGB CONC 34.7 g/dL (33.0-37.0); RBC 4.09 Mil/uL (4.40-5.90); RED CELL DISTRIBUTION WIDTH 12.9 % (11.5-14.5); WHITE BLOOD COUNT 10.8 K/uL (4.8-10.8)
[2017-11-22 06:25] LABS: BLOOD UREA NITROGEN 10 mg/dl (9-20); CALCIUM 8.5 mg/dL (8.4-10.2); GFR AFRICAN-AMERICAN > 60; GFR NON-AFRICAN AMERICAN > 60
[2017-11-22 08:04] VITALS: RESP 20
[2017-11-22] MEDS: Magnesium Oxide 400 mg Tab UD PO SCH (08:49)
[2017-11-22] MEDS: Enoxaparin 40 mg Syringe SC SCH (08:49)
--- NOTE | 2017-11-22 11:21 | CP.PCM.PN ---
Subjective - Date & Time of Evaluation Date of Evaluation: 11/22/17 Time of Evaluation: 11:18 - Subjective Subjective: Mr. ornelas was seen and examined at the bedside. He is alert, oriented in all spheres. He denies any headache, dizziness, lightheadedness. He is able to follow all simple commands. The LP puncture is clean no s/s infection, with very mild tenderness. He is able to ambulate within the room in steady gait.. There was no untoward events overnight. Objective - Vital Signs/Intake and Output Vital Signs (last 24 hours): Temp Pulse Resp BP Pulse Ox 97.5 F L 84 20 107/63 96 11/22/17 08:03 11/22/17 08:03 11/22/17 08:03 11/22/17 08:03 11/22/17 08:03 - Medications Medications: Current Medications Acetaminophen (Tylenol 325mg Tab) 650 mg PO Q4 PRN PRN Reason: Fever >100.4 F Dexamethasone (Decadron Inj) 10 mg IVP DAILY [facility] Last Admin: 11/22/17 09:06 Dose: 10 mg Enoxaparin Sodium (Lovenox) 40 mg SC DAILY JON[facility] PRN Reason: Protocol Last Admin: 11/22/17 08:49 Dose: 40 mg Ceftriaxone Sodium 2 gm/ (Sodium Chloride) 100 mls @ 100 mls/hr IVPB DAILY JON[facility] PRN Reason: Protocol Last Admin: 11/21/17 08:46 Dose: 100 mls/hr Acyclovir 680 mg/ Sodium (Chloride) 100 mls @ 100 mls/hr IV Q8 JONES PRN Reason: Protocol Last Admin: 11/22/17 08:50 Dose: 100 mls/hr Vancomycin HCl 1 gm/ Sodium (Chloride) 250 mls @ 166.667 mls/hr IVPB Q12 JONES PRN Reason: Protocol Last Admin: 11/22/17 08:49 Dose: 166.667 mls/hr Ketorolac Tromethamine (Toradol) 30 mg IVP Q6 PRN PRN Reason: For Severe Headache Last Admin: 11/20/17 15:42 Dose: 30 mg Ketorolac Tromethamine (Toradol) 15 mg IVP Q6 PRN PRN Reason: For mild headache Last Admin: 11/22/17 08:49 Dose: 15 mg Magnesium Oxide (Mag-Ox) 400 mg PO BID JONES Last Admin: 11/22/17 08:49 Dose: 400 mg Metoclopramide HCl (Reglan) 10 mg IVP Q6 PRN PRN Reason: Nausea/Vomiting Last Admin: 11/21/17 08:47 Dose: 10 mg Oxycodone/Acetaminophen (Percocet 5/325 Mg Tab) 1 tab PO Q6 PRN PRN Reason: Pain, severe (8-10) Stop: 11/23/17 14:14 Last Admin: 11/20/17 14:26 Dose: 1 tab - Labs Labs: 11/22/17 04:20 11/22/17 04:20 PT 13.7 Seconds (9.8-13.1) H 11/20/17 04:30 INR 1.2 (0.9-1.2) 11/20/17 04:30 APTT 28.0 Seconds (25.6-37.1) 11/20/17 04:30 - Constitutional Appears: No Acute Distress - Head Exam Head Exam: NORMAL INSPECTION - Eye Exam Pupil Exam: PERRL - Neurological Exam Neurological Exam: Alert, Awake, Oriented x3 Neuro motor strength exam: Left Upper Extremity: 5, Right Upper Extremity: 5, Left Lower Extremity: 5, Right Lower Extremity: 5 Additional comments: Neurological unchanged from previous examination. Assessment and Plan (1) Viral meningitis Assessment & Plan: Case discussed with Dr. Mathur, continue all current medical regimen. Recommend to treat any electrolyte electrolytes Status: Acute
[2017-11-22 11:59] VITALS: BP 109/69; PULSE 87; TEMP 97.9; O2SAT 98
--- NOTE | 2017-11-22 12:39 | CP.PCM.DIS ---
Provider - Provider Date of Admission: 11/19/17 21:03 Attending physician: Rubio Alvarez Consults: ID consult neuro consult Time Spent in preparation of Discharge (in minutes): 15 Hospital Course - Lab Results Lab Results: Micro Results 11/19/17 15:00 Blood Blood Culture - Preliminary NO GROWTH AFTER 48 HOURS 11/19/17 18:57 Cerebral Spinal Fluid Gram Stain - Final 11/19/17 18:57 Cerebral Spinal Fluid CSF Culture - Preliminary NO GROWTH AFTER 2 DAYS 11/19/17 15:00 Urine Urine Culture - Final No Growth (<1,000 CFU/ML) Most Recent Lab Values WBC 10.8 K/uL (4.8-10.8) 11/22/17 04:20 RBC 4.09 Mil/uL (4.40-5.90) L 11/22/17 04:20 Hgb 12.9 g/dL (12.0-18.0) 11/22/17 04:20 Hct 37.0 % (35.0-51.0) 11/22/17 04:20 MCV 90.5 fl (80.0-94.0) 11/22/17 04:20 MCH 31.4 pg (27.0-31.0) H 11/22/17 04:20 MCHC 34.7 g/dL (33.0-37.0) 11/22/17 04:20 RDW 12.9 % (11.5-14.5) 11/22/17 04:20 Plt Count 305 K/uL (130-400) 11/22/17 04:20 MPV 7.8 fl (7.2-11.7) 11/20/17 04:30 Neut % (Auto) 86.1 % (50.0-75.0) H 11/20/17 04:30 Lymph % (Auto) 7.6 % (20.0-40.0) L 11/20/17 04:30 Murray % (Auto) 6.1 % (0.0-10.0) 11/20/17 04:30 Eos % (Auto) 0.0 % (0.0-4.0) 11/20/17 04:30 Baso % (Auto) 0.2 % (0.0-2.0) 11/20/17 04:30 Neut # (Auto) 7.9 K/uL (1.8-7.0) H 11/20/17 04:30 Lymph # (Auto) 0.7 K/uL (1.0-4.3) L 11/20/17 04:30 Murray # (Auto) 0.6 K/uL (0.0-0.8) 11/20/17 04:30 Eos # (Auto) 0.0 K/uL (0.0-0.7) 11/20/17 04:30 Baso # (Auto) 0.0 K/uL (0.0-0.2) 11/20/17 04:30 Neutrophils % (Manual) 85 % (42-75) H 11/19/17 15:00 Lymphocytes % (Manual) 9 % (20-50) L 11/19/17 15:00 Monocytes % (Manual) 6 % (0-10) 11/19/17 15:00 Platelet Estimate Normal (NORMAL) 11/19/17 15:00 Large Platelets Present 11/19/17 15:00 Anisocytosis (manual) Slight 11/19/17 15:00 Tear Drop Cells Slight 11/19/17 15:00 ESR 30 mm/hr (0-15) H 11/19/17 15:00 PT 13.7 Seconds (9.8-13.1) H 11/20/17 04:30 INR 1.2 (0.9-1.2) 11/20/17 04:30 APTT 28.0 Seconds (25.6-37.1) 11/20/17 04:30 Sodium 140 mmol/l (132-148) 11/22/17 04:20 Potassium 3.6 MMOL/L (3.6-5.0) 11/22/17 04:20 Chloride 103 mmol/L (98-107) 11/22/17 04:20 Carbon Dioxide 24 mmol/L (22-30) 11/22/17 04:20 Anion Gap 17 (10-20) 11/22/17 04:20 BUN 10 mg/dl (9-20) 11/22/17 04:20 Creatinine 0.7 mg/dl (0.8-1.5) L 11/22/17 04:20 Est GFR ( Amer) > 60 11/22/17 04:20 Est GFR (Non-Af Amer) > 60 11/22/17 04:20 Random Glucose 112 mg/dL (75-110) H 11/22/17 04:20 Calcium 8.5 mg/dL (8.4-10.2) 11/22/17 04:20 Total Bilirubin 0.4 mg/dl (0.2-1.3) 11/19/17 15:00 AST 42 U/L (17-59) 11/19/17 15:00 ALT 70 U/L (21-72) 11/19/17 15:00 Alkaline Phosphatase 72 U/L (38-126) 11/19/17 15:00 Total Protein 7.6 G/DL (6.3-8.2) 11/19/17 15:00 Albumin 4.1 g/dL (3.5-5.0) 11/19/17 15:00 Globulin 3.5 gm/dL (2.2-3.9) 11/19/17 15:00 Albumin/Globulin Ratio 1.1 (1.0-2.1) 11/19/17 15:00 Urine Color Yellow (YELLOW) 11/19/17 15:00 Urine Clarity Slighty-cloudy (Clear) 11/19/17 15:00 Urine pH 6.0 (5.0-8.0) 11/19/17 15:00 Ur Specific Barton 1.026 (1.003-1.030) 11/19/17 15:00 Urine Protein 30 mg/dL (NEGATIVE) 11/19/17 15:00 Urine Glucose (UA) Neg mg/dL (Normal) 11/19/17 15:00 Urine Ketones Trace mg/dL (NEGATIVE) 11/19/17 15:00 Urine Blood Negative (NEGATIVE) 11/19/17 15:00 Urine Nitrate Negative (NEGATIVE) 11/19/17 15:00 Urine Bilirubin Negative (NEGATIVE) 11/19/17 15:00 Urine Urobilinogen 0.2-1.0 mg/dL (0.2-1.0) 11/19/17 15:00 Ur Leukocyte Esterase Neg Consuelo/uL (Negative) 11/19/17 15:00 Urine RBC (Auto) 3 /hpf (0-3) 11/19/17 15:00 Urine Microscopic WBC 2 /hpf (0-5) 11/19/17 15:00 Urine Bacteria Rare (<OCC) 11/19/17 15:00 Fluid Type Spinal fluid 11/19/17 18:57 CSF Volume 1 mL (0-1) 11/19/17 18:57 CSF Appearance Clear/colorless (CLEAR) 11/19/17 18:57 CSF WBC 10.0 /mm3 (0.0-5.0) H 11/19/17 18:57 CSF RBC 12.0 /mm3 (0.0-0.0) H 11/19/17 18:57 CSF Total Cell Counted 100 (0-0) H 11/19/17 18:57 CSF Neutrophils 65 % (0-0) H 11/19/17 18:57 CSF Lymphocytes 32.0 % (0-0) H 11/19/17 18:57 CSF Monos/Macrophages 3 % (0-0) H 11/19/17 18:57 CSF Comment Colorless 11/19/17 18:57 CSF Glucose 61 mg/dL (40-70) 11/19/17 18:57 CSF Total Protein 34.0 mg/dL (12-60) 11/19/17 18:57 CSF VDRL Nonreactive (Nonreactive) 11/19/17 18:57 Urine Opiates Screen Positive (NEGATIVE) H 11/20/17 13:37 Urine Methadone Screen Negative (NEGATIVE) 11/20/17 13:37 Ur Barbiturates Screen Negative (NEGATIVE) 11/20/17 13:37 Ur Phencyclidine Scrn Negative (NEGATIVE) 11/20/17 13:37 Ur Amphetamines Screen Negative (NEGATIVE) 11/20/17 13:37 U Benzodiazepines Scrn Negative (NEGATIVE) 11/20/17 13:37 U Oth Cocaine Metabols Negative (NEGATIVE) 11/20/17 13:37 U Cannabinoids Screen Negative (NEGATIVE) 11/20/17 13:37 HSV Source Description Csf 11/19/17 18:57 HSV I DNA PCR Not detected (Not Detected) 11/19/17 18:57 HSV II DNA PCR Not detected (Not Detected) 11/19/17 18:57 HIV 1&2 Antibody Screen Negative (NEGATIVE) 11/20/17 04:30 - Hospital Course Hospital Course: 37 years old male with hx of Encephalitis 30 years ago, was referred to the ED from the urgent care with 4 days of generalized headache, associated with pain to the back of neck and shoulders. He referred subjected fevers and chills. No nausea, vomiting , Photophobia, dysuria, diarrhea, nor recent viral infection. LP showed RBC-s and WBC with 65 neutrophils and 32 lymphocytes Patient admitted for viral vs aseptic meningitis and started on vanco , Rocephin and acyclovir IV empirically . ID was consulted and placed on droplet precautions.CT head showed no acute pathology. He was given Decadron IV , Toradol and Percoset PRN for LOVE and Reglan for nausea. Work up showed ; LP - negative for HSV , with no growth Patient clinically improved, hemodynamically stable, afebrile, headache and nausea resolved. Discussed with ID Dr. pringle . Will d/c Vanco, Rocephin and Acyclovir Will d/c patient home Follow up with PMD 1.Viral vs aseptic Meningitis clinically improved Discharge Exam - Head Exam Head Exam: NORMAL INSPECTION - Eye Exam Eye Exam: EOMI, Normal appearance, PERRL Pupil Exam: NORMAL ACCOMODATION - ENT Exam ENT Exam: Mucous Membranes Moist, Normal Exam - Neck Exam Neck exam: Full Rom, Normal Inspection - Respiratory Exam Respiratory Exam: Clear to PA & Lateral, NORMAL BREATHING PATTERN. absent: Rales, Rhonchi - Cardiovascular Exam Cardiovascular Exam: REGULAR RHYTHM, RRR, +S1, +S2. absent: JVD - GI/Abdominal Exam GI & Abdominal Exam: Normal Bowel Sounds, Soft. absent: Distended, Guarding, Rebound, Tenderness - Rectal Exam Rectal Exam: Deferred - Extremities Exam Extremities exam: normal capillary refill, normal inspection - Back Exam Back exam: NORMAL INSPECTION - Neurological Exam Neurological exam: Alert, CN II-XII Intact, Oriented x3, Reflexes Normal - Psychiatric Exam Psychiatric exam: Normal Affect, Normal Mood - Skin Skin Exam: Dry, Intact, Normal Color, Warm Discharge Plan - Follow Up Plan Condition: STABLE Disposition: HOME/ ROUTINE Patient education suggested?: Yes Instructions: Viral Meningitis, Adult (DC) Referrals: [facility] [place] [Outside]
== END 2017-11-22 14:30 | disposition home or self-care (01) | DRG 99 ==
LOC: H.ER 14:16 → H.ERHOLD 21:03 → H.TEL 22:47
PROVIDERS: ADMIT Internal Medicine; ATTEND Internal Medicine
PROC: 009U3ZX Drainage of Spinal Canal, Percutaneous Approach, Diagnostic (ICD-10-PCS; principal; 2017-11-19)
DX: G03.0 Nonpyogenic meningitis (principal); A87.9 Viral meningitis, unspecified